=== PATIENT | female | born 1960 | race African-American/Black ===

== ENCOUNTER → 2020-05-08 | Outpatient (CLI) | payer BC ==
[2015-12-04 15:39] VITALS: BP 161/91
[~2020-05-08] MED LIST: CYCL10TA2 PO; OXYC5CAP PO
--- NOTE | 2020-05-08 15:24 | KCIC ---
EXAM: Left shoulder, 4 views. HISTORY: Pain. COMPARISON: None. FINDINGS: 4 views of the left shoulder obtained. There is no fracture, dislocation or subluxation. IMPRESSION: No acute osseous finding. Electronically signed by: Chinyere Wan MD (05/08/2020 3:22 PM) [id number]
== END ==
LOC: KCIC 13:55
PROVIDERS: ATTEND Family Medicine Sports Medicine
DX: M25.512 Pain in left shoulder (principal)
CPT/HCPCS: 73030

== ENCOUNTER → 2020-06-10 | Outpatient (CLI) | payer BC ==
[2015-12-04 15:39] VITALS: BP 161/91
--- NOTE | 2020-06-10 09:20 | KCIC ---
EXAM: Pelvis and left hip, 2 views. HISTORY: Pain. COMPARISON: None. FINDINGS: A frontal view the pelvis and frog-leg view of the left hip are obtained. There is no fract ure, dislocation or subluxation. There is minimal bilateral marginal femoral head spurring. There is degenerative change at the lumbosacral junction. IMPRESSION: Minimal bilateral hip osteoarthritis. Electronically signed by: Chniyere Wan MD (06/10/2020 9:18 AM) [id number]
== END ==
LOC: KCIC 08:33
PROVIDERS: ATTEND Family Medicine Sports Medicine
DX: M16.0 Bilateral primary osteoarthritis of hip (principal)
CPT/HCPCS: 73501